=== PATIENT | female | born 1970 | race Two or more races ===

== ENCOUNTER 2021-05-16 19:58 | Inpatient (IN) | payer OTHER, SELFPAY ==
--- NOTE | ~2021-05-16 | XR_ITS ---
EXAMINATION: XR CHEST XR ABDOMEN XR SKULL CLINICAL INFORMATION: Evaluation prior to MRI. COMPARISON: None TECHNIQUE: AP and lateral views of the chest, 2 AP views of the abdomen in AP and lateral views of the skull. FINDINGS: CHEST: The cardiomediastinal and hilar contours are within normal limits. The lungs are clear without focal consolidation, pleural effusion or pneumothorax. ABDOMEN: Cholecystectomy clips project over the right upper quadrant. Nonobstructive bowel gas pattern. Moderate to large stool burden throughout the colon. No large free air. SKULL: Metallic, fixation brackets and screws are seen along the left occipital region around a site of likely prior craniotomy. XR/XR chest 2V IMPRESSION: 1. Cholecystectomy clips project over the right upper abdomen. 2. Two, metallic fixation brackets and screws are seen along the left occipital region around the site of prior surgery/craniotomy.
--- NOTE | ~2021-05-16 | XR_ITS ---
EXAMINATION: XR CHEST XR ABDOMEN XR SKULL CLINICAL INFORMATION: Evaluation prior to MRI. COMPARISON: None TECHNIQUE: AP and lateral views of the chest, 2 AP views of the abdomen in AP and lateral views of the skull. FINDINGS: CHEST: The cardiomediastinal and hilar contours are within normal limits. The lungs are clear without focal consolidation, pleural effusion or pneumothorax. ABDOMEN: Cholecystectomy clips project over the right upper quadrant. Nonobstructive bowel gas pattern. Moderate to large stool burden throughout the colon. No large free air. SKULL: Metallic, fixation brackets and screws are seen along the left occipital region around a site of likely prior craniotomy. XR/XR KUB IMPRESSION: 1. Cholecystectomy clips project over the right upper abdomen. 2. Two, metallic fixation brackets and screws are seen along the left occipital region around the site of prior surgery/craniotomy.
--- NOTE | ~2021-05-16 | CT_ITS ---
EXAMINATION: CT HEAD WITHOUT CONTRAST CLINICAL INFORMATION: Cognitive impairment COMPARISON: None. TECHNIQUE: Contiguous axial imaging was performed from the skull base to vertex without intravenous administration of contrast. Coronal and sagittal reformatted images are performed at the CT scanner. [This CT examination was performed using dose optimization techniques as appropriate, variously including the following: *Automated exposure control *Adjustment of mA and/or kV according to patient size (this includes techniques or standardized protocols for targeted exams where dose is matched to indication/reason for exam; i.e. extremities or head) *Use of iterative reconstruction technique] DLP: 949 mGy-cm. FINDINGS: There is no evidence of acute intracranial hemorrhage or acute territorial infarction. 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 Status post left craniotomy adjacent to the site. No abnormal mass-effect or midline shift is seen. Nichole to white matter differentiation is well preserved. No extra-axial fluid collections are identified. The ventricles are normal in size. There is no abnormal attenuation within the brain parenchyma. The mastoid air cells and visualized portions of the paranasal sinuses are well-aerated. CT/CT head/brain wo con IMPRESSION: No acute intracranial pathology.
--- NOTE | ~2021-05-16 | XR_ITS ---
EXAMINATION: XR CHEST XR ABDOMEN XR SKULL CLINICAL INFORMATION: Evaluation prior to MRI. COMPARISON: None TECHNIQUE: AP and lateral views of the chest, 2 AP views of the abdomen in AP and lateral views of the skull. FINDINGS: CHEST: The cardiomediastinal and hilar contours are within normal limits. The lungs are clear without focal consolidation, pleural effusion or pneumothorax. ABDOMEN: Cholecystectomy clips project over the right upper quadrant. Nonobstructive bowel gas pattern. Moderate to large stool burden throughout the colon. No large free air. SKULL: Metallic, fixation brackets and screws are seen along the left occipital region around a site of likely prior craniotomy. XR/XR skull <4V IMPRESSION: 1. Cholecystectomy clips project over the right upper abdomen. 2. Two, metallic fixation brackets and screws are seen along the left occipital region around the site of prior surgery/craniotomy.
--- NOTE | 2021-05-17 01:04 | PC.ADMIT ---
Beatrice Broderick arrives at 2015 from [facility]. Patient signed a CV. Patient is a 51 year old female, predominately Sudanese speaking. Patient was not compliant with admission assessment. Used a Sudanese speaking court interpreter. Patient refused to answer most questions. Patient continuously asked over and over when she could leave, was focused primarily on that. Was informed she could not leave and needed to wait until the morning to speak with MD. Patient was agitated and stated she would not take any medications at all. Patient is HIV + and Covid negative. According to [facility] report, patient living with son, not taking medications, and has been delusional and paranoid. Patient reported some Vague HI towards family members and had a plan to walk into traffic. Patient is diabetic and utilizing Lantus at .
[2021-05-17 05:33] VITALS: BMI 33.3
[2021-05-17 07:48] LABS: MANUAL DIFF FLAG NO
[2021-05-17 07:50] LABS: Basophils Percent Auto 0.7 % (0-2); Eosinophils Absolute Auto 0.2 X10*3/uL (0.0-0.4); Eosinophils Percent Auto 3.5 % (0-4); Hematocrit 36.2 % (37.0-47.0); Hemoglobin 12.3 g/dl (12.0-16.0); Imm Gran Abs Auto 0.02 X10*3/uL (0.00-0.03); Imm Gran Pct Auto 0.4 % (0.0-0.4); Lymphocytes Absolute Auto 1.1 X10*3/uL (1.2-4.9); Lymphocytes Percent Auto 24.4 % (20-40); Mean Corpuscular Hemoglobin 31.7 pg (27.0-33.0); Mean Corpuscular Volume 93.3 fL (80.0-98.0); Monocytes Absolute Auto 0.4 X10*3/uL (0.1-1.2); Monocytes Percent Auto 7.9 % (2-11); Neutrophils Absolute Auto 2.9 x10*3/uL (2.0-8.3); Neutrophils Percent Auto 63.1 % (45-73); Platelet Count 175 X10*3/uL (160-400); Red Blood Count 3.88 X10*6/uL (4.20-5.50); Red Cell Distribution Width 11.9 % (11.0-16.0); White Blood Count 4.5 X10*3/uL (4.8-10.8)
[2021-05-17 08:08] VITALS: BP 165/72; PULSE 81; RESP 17; TEMP 36.6; O2SAT 100
[2021-05-17 08:14] LABS: Alanine Aminotransferase 16 U/L (0-31); Albumin Level 4.2 g/dL (3.5-5.0); Alkaline Phosphatase 132 U/L (39-117); Aspartate Amino Transferase 13 U/L (5-31); Bilirubin Direct 0.2 mg/dL (0.0-0.5); Bilirubin Total 0.7 mg/dL (0.0-1.0); Total Protein 7.3 g/dL (6.5-8.0)
[2021-05-17 09:00] LABS: Glucose, Whole Blood 411 mg/dL (60-115)
[2021-05-17] MEDS: Insulin Lispro 100 UNIT/ML 3 ML VIAL 10 UNIT SUBCUT ×2 (09:05→20:25)
[2021-05-17 09:47] VITALS: BP 188/74; PULSE 90
[2021-05-17 12:45] LABS: Glucose, Whole Blood 338 mg/dL (60-115)
[2021-05-17 14:57] VITALS: BP 147/65; PULSE 85
[2021-05-17] MEDS: Celecoxib 200 MG CAPSULE PO (14:57)
[2021-05-17] MEDS: amLODIPine Besylate 5 MG TABLET PO (14:57)
[2021-05-17] MEDS: Sertraline HCL 100 MG TABLET PO (15:01)
[2021-05-17] MEDS: methIMAzole 10 MG TABLET PO (15:01)
[2021-05-17] MEDS: Dolutegravir Sodium 50 MG TABLET PO (15:01)
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
[2021-05-17] MEDS: Acetaminophen 325 MG TABLET 650 MG PO (15:04)
[2021-05-17] MEDS: HaloperidoL 5 MG TABLET PO ×2 (15:47→20:21)
[2021-05-17 20:09] LABS: Glucose, Whole Blood > 600 mg/dL (60-115)
[2021-05-17] MEDS: Aspirin Enteric Coated 81 MG TABLET.DR PO (20:21)
[2021-05-17] MEDS: Omeprazole 20 MG CAPSULE.DR PO (20:21)
[2021-05-17] MEDS: Divalproex Sodium ER 500 MG TAB.ER.24H 1000 MG PO (20:21)
[2021-05-17] MEDS: Insulin Glargine,Hum.rec.anlog 100 UNIT/ML 10 ML VIAL 60 UNIT SUBCUT (20:24)
[2021-05-17 20:25] VITALS: BP 139/63; PULSE 75; RESP 18; TEMP 36.5; O2SAT 98
[2021-05-17 21:23] LABS: Glucose Random 712 mg/dL (60-115)
[2021-05-17 22:04] LABS: Glucose, Whole Blood > 600 mg/dL (60-115)
[2021-05-17 22:28] LABS: Anion Gap 13 (12-20); Blood Urea Nitrogen 25 mg/dL (9-16); Carbon Dioxide 23 mmol/L (22-29); Chloride 95 mmol/L (96-108); Creatinine Clr Calc Pharmacy 39.7; Estimated Glomerular Filt Rate 29; Glucose Random 664 mg/dL (60-115); Potassium 4.4 mmol/L (3.3-5.1); Sodium 127 mmol/L (135-145)
[2021-05-17] MEDS: Insulin Lispro 100 UNIT/ML 3 ML VIAL 12 UNIT SUBCUT (23:18)
--- NOTE | 2021-05-17 23:47 | P.EN_ITS ---
Event Note Date of Service: 06/01/21 Event Note: Hyperglycemia: Patient is uses glucose noted to be 750; patient was given 10 units of Humalog; patient already received her nighttime dose of Lantus 60 units Patient's blood chemistry showed sodium of 127-pseudo hyponatremia; Serum bicarb 23. No evidence of DKA. Patient encouraged to drink water. Patient given and the 10 units of Humalog. Follow-up glucose improved to 455 ; will continue to monitor. HECTOR: Patient's creatinine noted to be 1.8. Patient's baseline creatinine is 1.1 as noted from the labs at [facility]. pt drinking water; On repeat BMP creatinine improved from 1.8 to 1.4 Pt denies any complaints; Exam benign. Off note: Spoke to the nursing insurance licensing supervisor for possibility of transfer to the medical floors for IV fluids. Reported that the bed situation is very tight. Probably no bed available tonight. Spoke Psychiatry UPSETTER, RN and pt-> explained plan of care and Encouraged Po fluid intake. Update: Early AM: pt developed Hypoglycemia; Pt POC ranged form 90 to 110; Received [place] Juice. Pt is Asymptomatic. Spoke RN to closely montior POC glucose for next few hrs. Held Lispro BID dose.
[2021-05-18 00:06] LABS: Glucose, Whole Blood 455 mg/dL (60-115)
--- NOTE | 2021-05-18 00:17 | PM.EVENT ---
Event Note Date of Service: 05/17/21 Event Note: At 21:23 RN notified pt had critical random blood glucose reading of 712. Pt was then given her scheduled humalog 10 units and lantus 60 units. I communicated result to hospitalist and he recommended ordering BMP, monitoring blood glucose every hour, and encouraging PO fluids 1-2 liters. At 22:30, pt's random blood glucose was 664, able to drink 4 oz of water but refused to drink more. BMP wnl except Na 127, chloride 95, BUN 25, and Cr 1.82. No baseline labs available to review. I discussed results with hospitalist who recommended 12 units of insulin lispro. At 00:17 pt had random blood glucose of 455. Hospitalist asked for formal consult to be placed and recommended to continue to monitor random blood glucose and encourage fluids, will re-assess BMP at 02:30.
--- NOTE | 2021-05-18 00:54 | PC.NURSE ---
Dr. Allen in to see Beatrice, did exam, encouraged patient to drink more fluids. Patient falling back to sleep during exam. Patient drank about 8 ounces of fluid.
[2021-05-18 01:13] LABS: Glucose, Whole Blood 449 mg/dL (60-115)
[2021-05-18] MEDS: Insulin Lispro 100 UNIT/ML 3 ML VIAL 10 UNIT SUBCUT (01:37)
[2021-05-18 02:19] LABS: Glucose, Whole Blood 298 mg/dL (60-115)
[2021-05-18 03:08] LABS: Anion Gap 15 (12-20); Blood Urea Nitrogen 23 mg/dL (9-16); Calcium 9.9 mg/dL (8.4-10.2); Carbon Dioxide 25 mmol/L (22-29); Chloride 101 mmol/L (96-108); Creatinine Clr Calc Pharmacy 48.9; Estimated Glomerular Filt Rate 37; Glucose Random 230 mg/dL (60-115); Potassium 4.2 mmol/L (3.3-5.1); Sodium 137 mmol/L (135-145)
[2021-05-18 03:22] LABS: Glucose, Whole Blood 129 mg/dL (60-115)
--- NOTE | 2021-05-18 03:33 | PC.NURSE ---
Patient blood sugar was 129, was given 4 ounces of cranberry juice and 2 saltine crackers with peanut butter.
[2021-05-18 03:54] LABS: Glucose, Whole Blood 93 mg/dL (60-115)
--- NOTE | 2021-05-18 04:02 | PC.NURSE ---
Patient given 4 ounces of cranberry juice.
[2021-05-18 04:23] LABS: Glucose, Whole Blood 138 mg/dL (60-115)
[2021-05-18 05:10] LABS: Glucose, Whole Blood 131 mg/dL (60-115)
--- NOTE | 2021-05-18 05:11 | PC.NURSE ---
Patient's blood glucose appears to be stabilizing. At 0415 POC was 138, at 0505 POC was 131.
[2021-05-18 06:21] LABS: Glucose, Whole Blood 110 mg/dL (60-115)
[2021-05-18 07:53] LABS: Glucose, Whole Blood 83 mg/dL (60-115)
[2021-05-18 08:25] LABS: Glucose, Whole Blood > 600 mg/dL (60-115)
--- NOTE | 2021-05-18 08:34 | PC.NURSE ---
POC glucose 83 at 0745am. 4 oz oj given due to significant drop in blood suagr. Patient is assymptomatic. Dr Maddox informed
[2021-05-18 08:53] LABS: Glucose, Whole Blood 115 mg/dL (60-115)
[2021-05-18] MEDS: methIMAzole 10 MG TABLET PO (10:03)
[2021-05-18] MEDS: Dolutegravir Sodium 50 MG TABLET PO (10:03)
[2021-05-18 10:04] VITALS: BP 130/88; PULSE 80
[2021-05-18] MEDS: Celecoxib 200 MG CAPSULE PO (10:04)
[2021-05-18] MEDS: amLODIPine Besylate 5 MG TABLET PO (10:04)
[2021-05-18] MEDS: HaloperidoL 5 MG TABLET PO ×2 (10:04→21:07)
[2021-05-18] MEDS: Nicotine 21 MG PATCH.TD24 TRANSDERMA (10:05)
[2021-05-18 10:30] VITALS: BP 130/88; PULSE 80; RESP 16; TEMP 36.4; O2SAT 96
[2021-05-18] MEDS: Insulin Lispro 100 UNIT/ML 3 ML VIAL SUBCUT ×3 (12:52→21:06)
[2021-05-18 12:53] LABS: Glucose, Whole Blood 362 mg/dL (60-115)
--- NOTE | 2021-05-18 15:37 | P.PNPSI_ITS ---
Subjective Subjective Date of Service: 05/18/21 Reason For Visit: Brief Psychotic d/o Interim History: pt seen with asl interpreter. reports her mood is good, yet then spins off onto tangents about all of the terrible things her relations are up to. the affect is very much muted from yesterday, however. acknowledges she is more calm than yesterday. no complaints or requests. per staff, labile and disorganized yesterday. blood sugar labile as well. disrupted sleep overnight due to medical interventions re blood sugar. Mental Status Exam Mental Status Exam Narrative: seen with asl interpreter. appropriately dressed and groomed in street clothes, cooperative with interview. no PMA/PMR. speech incr in rate, amount. nml loudness. decr latency, nml prosody. thoughts more organized, but tangential. delusional and paranoid. affect constricted, consistent with context, normo-intense, minimally labile. mood good, no SI/HI/AVH expressed. Diagnostics Vital Signs (24Hr): Vital Signs - 24 hr 05/17/21 20:25 05/18/21 10:04 05/18/21 10:30 Temperature 97.7 F 97.5 F Pulse Rate 75 80 80 Respiratory Rate 18 16 Blood Pressure 139/63 130/88 130/88 Pulse Oximetry 98 96 BMI result Body Mass Index 33.3 Labs Results: 05/17/21 07:08 05/18/21 02:31 Labs: Laboratory Results - last 48 hr 05/17/21 05/17/21 05/17/21 07:08 07:08 08:54 WBC 4.5 L RBC 3.88 L Hgb 12.3 Hct 36.2 L MCV 93.3 MCH 31.7 MCHC 34.0 RDW 11.9 Plt Count 175 MPV 11.0 Immature Gran % (Auto) 0.4 Neut % (Auto) 63.1 Lymph % (Auto) 24.4 [place] % (Auto) 7.9 Eos % (Auto) 3.5 Baso % (Auto) 0.7 Lymph # (Auto) 1.1 L [place] # (Auto) 0.4 Eos # (Auto) 0.2 Baso # (Auto) 0.0 Abs Immat Gran (auto) 0.02 Absolute Neuts (auto) 2.9 Absolute Nucleated RBC 0.000 Nucleated RBC % (auto) 0.0 Sodium Potassium Chloride Carbon Dioxide Anion Gap BUN Creatinine Estim Creat Clear Calc Estimated GFR POC Glucose 411 H* Random Glucose Calcium Total Bilirubin 0.7 Direct Bilirubin 0.2 AST 13 ALT 16 Alkaline Phosphatase 132 H Total Protein 7.3 Albumin 4.2 05/17/21 05/17/21 05/17/21 12:41 19:57 19:58 WBC RBC Hgb Hct MCV MCH MCHC RDW Plt Count MPV Immature Gran % (Auto) Neut % (Auto) Lymph % (Auto) [place] % (Auto) Eos % (Auto) Baso % (Auto) Lymph # (Auto) [place] # (Auto) Eos # (Auto) Baso # (Auto) Abs Immat Gran (auto) Absolute Neuts (auto) Absolute Nucleated RBC Nucleated RBC % (auto) Sodium Potassium Chloride Carbon Dioxide Anion Gap BUN Creatinine Estim Creat Clear Calc Estimated GFR POC Glucose 338 H > 600 H* > 600 H* Random Glucose Calcium Total Bilirubin Direct Bilirubin AST ALT Alkaline Phosphatase Total Protein Albumin 05/17/21 05/17/21 05/17/21 20:34 21:47 21:48 WBC RBC Hgb Hct MCV MCH MCHC RDW Plt Count MPV Immature Gran % (Auto) Neut % (Auto) Lymph % (Auto) [place] % (Auto) Eos % (Auto) Baso % (Auto) Lymph # (Auto) [place] # (Auto) Eos # (Auto) Baso # (Auto) Abs Immat Gran (auto) Absolute Neuts (auto) Absolute Nucleated RBC Nucleated RBC % (auto) Sodium 127 L Potassium 4.4 Chloride 95 L Carbon Dioxide 23 Anion Gap 13 BUN 25 H Creatinine 1.82 H Estim Creat Clear Calc 39.7 Estimated GFR 29 POC Glucose > 600 H* Random Glucose 712 H* 664 H* Calcium 9.0 Total Bilirubin Direct Bilirubin AST ALT Alkaline Phosphatase Total Protein Albumin 05/18/21 05/18/21 05/18/21 00:01 01:07 02:14 WBC RBC Hgb Hct MCV MCH MCHC RDW Plt Count MPV Immature Gran % (Auto) Neut % (Auto) Lymph % (Auto) [place] % (Auto) Eos % (Auto) Baso % (Auto) Lymph # (Auto) [place] # (Auto) Eos # (Auto) Baso # (Auto) Abs Immat Gran (auto) Absolute Neuts (auto) Absolute Nucleated RBC Nucleated RBC % (auto) Sodium Potassium Chloride Carbon Dioxide Anion Gap BUN Creatinine Estim Creat Clear Calc Estimated GFR POC Glucose 455 H* 449 H* 298 H Random Glucose Calcium Total Bilirubin Direct Bilirubin AST ALT Alkaline Phosphatase Total Protein Albumin 05/18/21 05/18/21 05/18/21 02:31 03:17 03:49 WBC RBC Hgb Hct MCV MCH MCHC RDW Plt Count MPV Immature Gran % (Auto) Neut % (Auto) Lymph % (Auto) [place] % (Auto) Eos % (Auto) Baso % (Auto) Lymph # (Auto) [place] # (Auto) Eos # (Auto) Baso # (Auto) Abs Immat Gran (auto) Absolute Neuts (auto) Absolute Nucleated RBC Nucleated RBC % (auto) Sodium 137 Potassium 4.2 Chloride 101 Carbon Dioxide 25 Anion Gap 15 BUN 23 H Creatinine 1.48 H Estim Creat Clear Calc 48.9 Estimated GFR 37 POC Glucose 129 H 93 Random Glucose 230 H D Calcium 9.9 D Total Bilirubin Direct Bilirubin AST ALT Alkaline Phosphatase Total Protein Albumin 05/18/21 05/18/21 05/18/21 04:15 05:04 06:15 WBC RBC Hgb Hct MCV MCH MCHC RDW Plt Count MPV Immature Gran % (Auto) Neut % (Auto) Lymph % (Auto) [place] % (Auto) Eos % (Auto) Baso % (Auto) Lymph # (Auto) [place] # (Auto) Eos # (Auto) Baso # (Auto) Abs Immat Gran (auto) Absolute Neuts (auto) Absolute Nucleated RBC Nucleated RBC % (auto) Sodium Potassium Chloride Carbon Dioxide Anion Gap BUN Creatinine Estim Creat Clear Calc Estimated GFR POC Glucose 138 H 131 H 110 Random Glucose Calcium Total Bilirubin Direct Bilirubin AST ALT Alkaline Phosphatase Total Protein Albumin 05/18/21 05/18/21 05/18/21 07:45 08:49 12:44 WBC RBC Hgb Hct MCV MCH MCHC RDW Plt Count MPV Immature Gran % (Auto) Neut % (Auto) Lymph % (Auto) [place] % (Auto) Eos % (Auto) Baso % (Auto) Lymph # (Auto) [place] # (Auto) Eos # (Auto) Baso # (Auto) Abs Immat Gran (auto) Absolute Neuts (auto) Absolute Nucleated RBC Nucleated RBC % (auto) Sodium Potassium Chloride Carbon Dioxide Anion Gap BUN Creatinine Estim Creat Clear Calc Estimated GFR POC Glucose 83 115 362 H* Random Glucose Calcium Total Bilirubin Direct Bilirubin AST ALT Alkaline Phosphatase Total Protein Albumin Medications Medications Current Medications Acetaminophen (Acetaminophen 325 Mg Tablet) 650 mg PO Q8H PRN PRN Reason: Pain, Mild Last Admin: 05/17/21 15:04 Dose: 650 mg Documented by: Al Hydroxide/Mg Hydroxide (Magnesium Hydrox/Alum Hydrox 30 Ml Oral.Susp) 30 ml PO Q6H PRN PRN Reason: Heartburn/Nausea Amlodipine Besylate (Amlodipine Besylate 5 Mg Tablet) 5 mg PO DAILY [facility]; Protocol Last Admin: 05/18/21 10:04 Dose: 5 mg Documented by: Aspirin (Aspirin Enteric Coated 81 Mg Tablet.) 81 mg PO BEDTIME [facility] Last Admin: 05/17/21 20:21 Dose: 81 mg Documented by: Celecoxib (Celecoxib 200 Mg Capsule) 200 mg PO DAILY [facility] Last Admin: 05/18/21 10:04 Dose: 200 mg Documented by: Dextrose (Dextrose 50 % 25 Gm/50 Ml Vial) 25 gm IVPUSH Q15M PRN; Protocol PRN Reason: per Hypoglycemia Standing Ord. Divalproex Sodium (Divalproex Sodium Er 500 Mg Tab.Er.24h) 1,000 mg PO BEDTIME [facility] Last Admin: 05/17/21 20:21 Dose: 1,000 mg Documented by: Dolutegravir Sodium (Dolutegravir Sodium 50 Mg Tablet) 50 mg PO DAILY [facility] Last Admin: 05/18/21 10:03 Dose: 50 mg Documented by: Glucose (Glucose Gel 15 Gm Gel..Gram.) 15 gm PO Q15M PRN; Protocol PRN Reason: per Hypoglycemia Standing Ord. Haloperidol (Haloperidol 5 Mg Tablet) 5 mg PO BID [facility] Last Admin: 05/18/21 10:04 Dose: 5 mg Documented by: Hydroxyzine HCl (Hydroxyzine Hcl 25 Mg Tablet) 25 mg PO BEDTIME PRN PRN Reason: Anxiety Insulin Glargine (Insulin Glargine,Hum.Rec.Anlog 100 Unit/Ml 10 Ml Vial) 60 unit SUBCUT BEDTIME [facility] Last Admin: 05/17/21 20:24 Dose: 60 unit Documented by: Insulin Human Lispro (Insulin Lispro 100 Unit/Ml 3 Ml Vial) 10 unit SUBCUT BID [facility] Last Admin: 05/17/21 20:25 Dose: 10 unit Documented by: Insulin Human Lispro (Insulin Lispro 100 Unit/Ml 3 Ml Vial) 0 unit SUBCUT QIDACHS [facility]; Protocol Last Admin: 05/18/21 12:52 Dose: 10 unit Documented by: Magnesium Hydroxide (Milk Of Magnesia 30 Ml Oral.Susp) 30 ml PO DAILY PRN PRN Reason: Constipation Methimazole (Methimazole 10 Mg Tablet) 10 mg PO DAILY [facility] Last Admin: 05/18/21 10:03 Dose: 10 mg Documented by: Nicotine (Nicotine 21 Mg Patch.Td24) 21 mg TRANSDERMA DAILY [facility] Last Admin: 05/18/21 10:05 Dose: 21 mg Documented by: Nicotine Polacrilex (Nicotine Polacrilex 2 Mg Gum) 2 mg BUCCAL Q2H PRN PRN Reason: craving Omeprazole (Omeprazole 20 Mg Capsule.Dr) 20 mg PO BEDTIME [facility] Last Admin: 05/17/21 20:21 Dose: 20 mg Documented by: Quetiapine Fumarate (Quetiapine Fumarate 200 Mg Tablet) 200 mg PO BEDTIME PRN PRN Reason: insomnia Tramadol HCl (Tramadol Hcl 50 Mg Tablet) 50 mg PO BID PRN PRN Reason: Pain, Mild (Pain Scale 1-3) Allergies Allergies Allergy/AdvReac Type Severity Reaction Status Date / Time morphine Allergy Itching Verified 05/16/21 21:20 Assessment & Plan Assessment & Plan (1) Bipolar I disorder with samson: Status: Acute Code(s): F31.10 - Bipolar disorder, current episode manic without psychotic features, unspecified (2) Hypertension: Status: Acute Code(s): I10 - Essential (primary) hypertension (3) Diabetes: Status: Acute Code(s): E11.9 - Type 2 diabetes mellitus without complications Assessment and Plan: 1) samson - VPA 1000 mg at HS, haldol 5 BID. much improved in less than 24H on this regimen. 2) DM - per medicine. SSI in place. 3) HTN - norvasc 5. 4) dispo - pending inpt stabilization. I spent minutes with the patient and/or on the patient floor today, greater than?50% of which was spent counseling/coordinating care. Reason for contiued inpatient stay Substantial Risk for: harm to others and rapid decompensation
[2021-05-18 17:26] LABS: Glucose, Whole Blood 195 mg/dL (60-115)
[2021-05-18 20:40] LABS: Glucose, Whole Blood 345 mg/dL (60-115)
[2021-05-18] MEDS: Insulin Glargine,Hum.rec.anlog 100 UNIT/ML 10 ML VIAL 60 UNIT SUBCUT (21:05)
[2021-05-18] MEDS: Divalproex Sodium ER 500 MG TAB.ER.24H 1000 MG PO (21:07)
[2021-05-18] MEDS: Aspirin Enteric Coated 81 MG TABLET.DR PO (21:07)
[2021-05-18] MEDS: Omeprazole 20 MG CAPSULE.DR PO (21:07)
[2021-05-18 21:12] VITALS: BP 161/68; PULSE 83; TEMP 36.8; O2SAT 100
--- NOTE | 2021-05-19 08:21 | HO.PSYCHPN ---
Subjective Subjective Date of Service: 05/19/21 Reason For Visit: Brief Psychotic d/o Subjective Notes: Conditional Voluntary Interim History: Patient was seen and discussed in rounds today. She is doing better and has been pleasant and social, showing signs of improvement. She is less paranoid and depressed. No SI/HI. No hallucinations reported. She has been compliant with her medications. She continues to get monitors for her diabetes which appears to be somewhat brittle. Eating and sleeping adequately. No changes were made today Medication Compliance: Yes Side effects from medications: No Attending Groups: Yes Review of Systems Review of Systems Yes all other systems are reviewed and are negative Mental Status Exam Mental Status Exam Narrative: Patient was seen in rounds today. She has alert, pleasant and interactive within her means. She is able to communicate minimally because of language barrier. No acute signs observed. No SI/HI reported. Appears to be intact cognitively. Diagnostics Vital Signs (24Hr): Vital Signs - 24 hr 05/18/21 10:04 05/18/21 10:30 05/18/21 21:12 Temperature 97.5 F 98.3 F Pulse Rate 80 80 83 Respiratory Rate 16 Blood Pressure 130/88 130/88 161/68 H Pulse Oximetry 96 100 BMI result Body Mass Index 33.3 Labs Results: 05/17/21 07:08 05/18/21 02:31 Labs: Laboratory Results - last 48 hr 05/17/21 05/17/21 05/17/21 08:54 12:41 19:57 Sodium Potassium Chloride Carbon Dioxide Anion Gap BUN Creatinine Estim Creat Clear Calc Estimated GFR POC Glucose 411 H* 338 H > 600 H* Random Glucose Calcium 05/17/21 05/17/21 05/17/21 19:58 20:34 21:47 Sodium Potassium Chloride Carbon Dioxide Anion Gap BUN Creatinine Estim Creat Clear Calc Estimated GFR POC Glucose > 600 H* > 600 H* Random Glucose 712 H* Calcium 05/17/21 05/18/21 05/18/21 21:48 00:01 01:07 Sodium 127 L Potassium 4.4 Chloride 95 L Carbon Dioxide 23 Anion Gap 13 BUN 25 H Creatinine 1.82 H Estim Creat Clear Calc 39.7 Estimated GFR 29 POC Glucose 455 H* 449 H* Random Glucose 664 H* Calcium 9.0 05/18/21 05/18/21 05/18/21 02:14 02:31 03:17 Sodium 137 Potassium 4.2 Chloride 101 Carbon Dioxide 25 Anion Gap 15 BUN 23 H Creatinine 1.48 H Estim Creat Clear Calc 48.9 Estimated GFR 37 POC Glucose 298 H 129 H Random Glucose 230 H D Calcium 9.9 D 05/18/21 05/18/21 05/18/21 03:49 04:15 05:04 Sodium Potassium Chloride Carbon Dioxide Anion Gap BUN Creatinine Estim Creat Clear Calc Estimated GFR POC Glucose 93 138 H 131 H Random Glucose Calcium 05/18/21 05/18/21 05/18/21 06:15 07:45 08:49 Sodium Potassium Chloride Carbon Dioxide Anion Gap BUN Creatinine Estim Creat Clear Calc Estimated GFR POC Glucose 110 83 115 Random Glucose Calcium 05/18/21 05/18/21 05/18/21 12:44 17:21 20:36 Sodium Potassium Chloride Carbon Dioxide Anion Gap BUN Creatinine Estim Creat Clear Calc Estimated GFR POC Glucose 362 H* 195 H 345 H Random Glucose Calcium Medications Medications Current Medications Acetaminophen (Acetaminophen 325 Mg Tablet) 650 mg PO Q8H PRN PRN Reason: Pain, Mild Last Admin: 05/17/21 15:04 Dose: 650 mg Documented by: Al Hydroxide/Mg Hydroxide (Magnesium Hydrox/Alum Hydrox 30 Ml Oral.Susp) 30 ml PO Q6H PRN PRN Reason: Heartburn/Nausea Amlodipine Besylate (Amlodipine Besylate 5 Mg Tablet) 5 mg PO DAILY [facility]; Protocol Last Admin: 05/18/21 10:04 Dose: 5 mg Documented by: Aspirin (Aspirin Enteric Coated 81 Mg Tablet.) 81 mg PO BEDTIME [facility] Last Admin: 05/18/21 21:07 Dose: 81 mg Documented by: Celecoxib (Celecoxib 200 Mg Capsule) 200 mg PO DAILY [facility] Last Admin: 05/18/21 10:04 Dose: 200 mg Documented by: Dextrose (Dextrose 50 % 25 Gm/50 Ml Vial) 25 gm IVPUSH Q15M PRN; Protocol PRN Reason: per Hypoglycemia Standing Ord. Divalproex Sodium (Divalproex Sodium Er 500 Mg Tab.Er.24h) 1,000 mg PO BEDTIME [facility] Last Admin: 05/18/21 21:07 Dose: 1,000 mg Documented by: Dolutegravir Sodium (Dolutegravir Sodium 50 Mg Tablet) 50 mg PO DAILY [facility] Last Admin: 05/18/21 10:03 Dose: 50 mg Documented by: Glucose (Glucose Gel 15 Gm Gel..Gram.) 15 gm PO Q15M PRN; Protocol PRN Reason: per Hypoglycemia Standing Ord. Haloperidol (Haloperidol 5 Mg Tablet) 5 mg PO BID [facility] Last Admin: 05/18/21 21:07 Dose: 5 mg Documented by: Hydroxyzine HCl (Hydroxyzine Hcl 25 Mg Tablet) 25 mg PO BEDTIME PRN PRN Reason: Anxiety Insulin Glargine (Insulin Glargine,Hum.Rec.Anlog 100 Unit/Ml 10 Ml Vial) 60 unit SUBCUT BEDTIME [facility] Last Admin: 05/18/21 21:05 Dose: 60 unit Documented by: Insulin Human Lispro (Insulin Lispro 100 Unit/Ml 3 Ml Vial) 10 unit SUBCUT BID [facility] Last Admin: 05/17/21 20:25 Dose: 10 unit Documented by: Insulin Human Lispro (Insulin Lispro 100 Unit/Ml 3 Ml Vial) 0 unit SUBCUT QIDACHS [facility]; Protocol Last Admin: 05/18/21 21:06 Dose: 8 unit Documented by: Magnesium Hydroxide (Milk Of Magnesia 30 Ml Oral.Susp) 30 ml PO DAILY PRN PRN Reason: Constipation Methimazole (Methimazole 10 Mg Tablet) 10 mg PO DAILY [facility] Last Admin: 05/18/21 10:03 Dose: 10 mg Documented by: Nicotine (Nicotine 21 Mg Patch.Td24) 21 mg TRANSDERMA DAILY [facility] Last Admin: 05/18/21 10:05 Dose: 21 mg Documented by: Nicotine Polacrilex (Nicotine Polacrilex 2 Mg Gum) 2 mg BUCCAL Q2H PRN PRN Reason: craving Omeprazole (Omeprazole 20 Mg Capsule.Dr) 20 mg PO BEDTIME [facility] Last Admin: 05/18/21 21:07 Dose: 20 mg Documented by: Quetiapine Fumarate (Quetiapine Fumarate 200 Mg Tablet) 200 mg PO BEDTIME PRN PRN Reason: insomnia Tramadol HCl (Tramadol Hcl 50 Mg Tablet) 50 mg PO BID PRN PRN Reason: Pain, Mild (Pain Scale 1-3) Allergies Allergies Allergy/AdvReac Type Severity Reaction Status Date / Time morphine Allergy Itching Verified 05/16/21 21:20 Assessment & Plan Assessment & Plan (1) Bipolar I disorder with samson: Status: Acute Code(s): F31.10 - Bipolar disorder, current episode manic without psychotic features, unspecified (2) Hypertension: Status: Acute Code(s): I10 - Essential (primary) hypertension (3) Diabetes: Status: Acute Code(s): E11.9 - Type 2 diabetes mellitus without complications Assessment and Plan: 1) samson - VPA 1000 mg at HS, haldol 5 BID. much improved in less than 24H on this regimen. 2) DM - per medicine. SSI in place. 3) HTN - norvasc 5. 4) dispo - pending inpt stabilization. 05/19: Continue current regimen with no changes implemented today I spent minutes with the patient and/or on the patient floor today, greater than?50% of which was spent counseling/coordinating care. Reason for contiued inpatient stay Substantial Risk for: other
[2021-05-19 09:00] VITALS: BP 133/61; PULSE 64; RESP 18; TEMP 36.4; O2SAT 100
[2021-05-19 09:00] LABS: Glucose, Whole Blood 151 mg/dL (60-115)
[2021-05-19] MEDS: Insulin Lispro 100 UNIT/ML 3 ML VIAL SUBCUT ×4 (09:03→22:05)
[2021-05-19 09:05] VITALS: BP 133/61; PULSE 64
[2021-05-19] MEDS: HaloperidoL 5 MG TABLET PO ×2 (09:05→22:07)
[2021-05-19] MEDS: amLODIPine Besylate 5 MG TABLET PO (09:05)
[2021-05-19] MEDS: methIMAzole 10 MG TABLET PO (09:05)
[2021-05-19] MEDS: Celecoxib 200 MG CAPSULE PO (09:05)
[2021-05-19] MEDS: Dolutegravir Sodium 50 MG TABLET PO (09:05)
[2021-05-19 12:49] LABS: Glucose, Whole Blood 280 mg/dL (60-115)
[2021-05-19 17:54] LABS: Glucose, Whole Blood 209 mg/dL (60-115)
[2021-05-19 18:00] VITALS: BP 177/75; PULSE 86; TEMP 36.9; O2SAT 99
[2021-05-19 20:45] LABS: Glucose, Whole Blood 327 mg/dL (60-115)
[2021-05-19] MEDS: Insulin Glargine,Hum.rec.anlog 100 UNIT/ML 10 ML VIAL 60 UNIT SUBCUT (22:06)
[2021-05-19] MEDS: Aspirin Enteric Coated 81 MG TABLET.DR PO (22:07)
[2021-05-19] MEDS: Divalproex Sodium ER 500 MG TAB.ER.24H 1000 MG PO (22:07)
[2021-05-19] MEDS: Omeprazole 20 MG CAPSULE.DR PO (22:07)
[2021-05-20 08:00] VITALS: BP 143/68; PULSE 91; TEMP 36.3; O2SAT 99
[2021-05-20 08:26] LABS: Glucose, Whole Blood 51 mg/dL (60-115)
--- NOTE | 2021-05-20 08:53 | HO.PSYCHPN ---
Subjective Subjective Date of Service: 05/20/21 Reason For Visit: Brief Psychotic d/o Subjective Notes: Conditional Voluntary Interim History: Patient was seen in rounds today. She continues to be in her room a lot. Attending some groups. She is med compliant. Appears to be less anxious and depressed. She is upset that she is here for Jared. She is med compliant. No side effects or complaints. No SI. No changes were made today Review of Systems Review of Systems Yes all other systems are reviewed and are negative Diagnostics Vital Signs (24Hr): Vital Signs - 24 hr 05/19/21 09:00 05/19/21 09:05 05/19/21 18:00 Temperature 97.6 F 98.5 F Pulse Rate 64 64 86 Respiratory Rate 18 Blood Pressure 133/61 133/61 177/75 H Pulse Oximetry 100 99 BMI result Body Mass Index 33.3 Labs Results: 05/17/21 07:08 05/18/21 02:31 Labs: Laboratory Results - last 48 hr 05/18/21 05/18/21 05/18/21 08:49 12:44 17:21 POC Glucose 115 362 H* 195 H 05/18/21 05/19/21 05/19/21 20:36 08:56 12:43 POC Glucose 345 H 151 H 280 H 05/19/21 05/19/21 05/20/21 17:50 20:33 08:15 POC Glucose 209 H 327 H 51 L* Medications Medications Current Medications Acetaminophen (Acetaminophen 325 Mg Tablet) 650 mg PO Q8H PRN PRN Reason: Pain, Mild Last Admin: 05/17/21 15:04 Dose: 650 mg Documented by: Al Hydroxide/Mg Hydroxide (Magnesium Hydrox/Alum Hydrox 30 Ml Oral.Susp) 30 ml PO Q6H PRN PRN Reason: Heartburn/Nausea Amlodipine Besylate (Amlodipine Besylate 5 Mg Tablet) 5 mg PO DAILY [facility]; Protocol Last Admin: 05/19/21 09:05 Dose: 5 mg Documented by: Aspirin (Aspirin Enteric Coated 81 Mg Tablet.) 81 mg PO BEDTIME [facility] Last Admin: 05/19/21 22:07 Dose: 81 mg Documented by: Celecoxib (Celecoxib 200 Mg Capsule) 200 mg PO DAILY [facility] Last Admin: 05/19/21 09:05 Dose: 200 mg Documented by: Dextrose (Dextrose 50 % 25 Gm/50 Ml Vial) 25 gm IVPUSH Q15M PRN; Protocol PRN Reason: per Hypoglycemia Standing Ord. Divalproex Sodium (Divalproex Sodium Er 500 Mg Tab.Er.24h) 1,000 mg PO BEDTIME [facility] Last Admin: 05/19/21 22:07 Dose: 1,000 mg Documented by: Dolutegravir Sodium (Dolutegravir Sodium 50 Mg Tablet) 50 mg PO DAILY [facility] Last Admin: 05/19/21 09:05 Dose: 50 mg Documented by: Glucose (Glucose Gel 15 Gm Gel..Gram.) 15 gm PO Q15M PRN; Protocol PRN Reason: per Hypoglycemia Standing Ord. Haloperidol (Haloperidol 5 Mg Tablet) 5 mg PO BID [facility] Last Admin: 05/19/21 22:07 Dose: 5 mg Documented by: Hydroxyzine HCl (Hydroxyzine Hcl 25 Mg Tablet) 25 mg PO BEDTIME PRN PRN Reason: Anxiety Insulin Glargine (Insulin Glargine,Hum.Rec.Anlog 100 Unit/Ml 10 Ml Vial) 60 unit SUBCUT BEDTIME [facility] Last Admin: 05/19/21 22:06 Dose: 60 unit Documented by: Insulin Human Lispro (Insulin Lispro 100 Unit/Ml 3 Ml Vial) 10 unit SUBCUT BID [facility] Last Admin: 05/17/21 20:25 Dose: 10 unit Documented by: Insulin Human Lispro (Insulin Lispro 100 Unit/Ml 3 Ml Vial) 0 unit SUBCUT QIDACHS [facility]; Protocol Last Admin: 05/19/21 22:05 Dose: 8 unit Documented by: Magnesium Hydroxide (Milk Of Magnesia 30 Ml Oral.Susp) 30 ml PO DAILY PRN PRN Reason: Constipation Methimazole (Methimazole 10 Mg Tablet) 10 mg PO DAILY [facility] Last Admin: 05/19/21 09:05 Dose: 10 mg Documented by: Nicotine (Nicotine 21 Mg Patch.Td24) 21 mg TRANSDERMA DAILY [facility] Last Admin: 05/19/21 13:14 Dose: Not Given Documented by: Nicotine Polacrilex (Nicotine Polacrilex 2 Mg Gum) 2 mg BUCCAL Q2H PRN PRN Reason: craving Omeprazole (Omeprazole 20 Mg Capsule.Dr) 20 mg PO BEDTIME [facility] Last Admin: 05/19/21 22:07 Dose: 20 mg Documented by: Quetiapine Fumarate (Quetiapine Fumarate 200 Mg Tablet) 200 mg PO BEDTIME PRN PRN Reason: insomnia Tramadol HCl (Tramadol Hcl 50 Mg Tablet) 50 mg PO BID PRN PRN Reason: Pain, Mild (Pain Scale 1-3) Allergies Allergies Allergy/AdvReac Type Severity Reaction Status Date / Time morphine Allergy Itching Verified 05/16/21 21:20 Assessment & Plan Assessment & Plan (1) Bipolar I disorder with samson: Status: Acute Code(s): F31.10 - Bipolar disorder, current episode manic without psychotic features, unspecified (2) Hypertension: Status: Acute Code(s): I10 - Essential (primary) hypertension (3) Diabetes: Status: Acute Code(s): E11.9 - Type 2 diabetes mellitus without complications Assessment and Plan: 1) samson - VPA 1000 mg at HS, haldol 5 BID. much improved in less than 24H on this regimen. 2) DM - per medicine. SSI in place. 3) HTN - norvasc 5. 4) dispo - pending inpt stabilization. 05/19: Continue current regimen with no changes implemented today I spent minutes with the patient and/or on the patient floor today, greater than?50% of which was spent counseling/coordinating care. Reason for contiued inpatient stay Substantial Risk for: other
[2021-05-20 08:56] VITALS: BP 143/68; PULSE 91
[2021-05-20] MEDS: amLODIPine Besylate 5 MG TABLET PO (08:56)
[2021-05-20] MEDS: HaloperidoL 5 MG TABLET PO ×2 (08:57→20:28)
[2021-05-20] MEDS: Celecoxib 200 MG CAPSULE PO (08:57)
[2021-05-20] MEDS: methIMAzole 10 MG TABLET PO (08:57)
[2021-05-20] MEDS: Dolutegravir Sodium 50 MG TABLET PO (08:57)
[2021-05-20] MEDS: Insulin Lispro 100 UNIT/ML 3 ML VIAL SUBCUT ×2 (12:13→20:44)
[2021-05-20 13:08] LABS: Glucose, Whole Blood 211 mg/dL (60-115)
[2021-05-20 17:15] LABS: Glucose, Whole Blood 162 mg/dL (60-115)
[2021-05-20 20:25] LABS: Glucose, Whole Blood 327 mg/dL (60-115)
[2021-05-20] MEDS: Omeprazole 20 MG CAPSULE.DR PO (20:28)
[2021-05-20] MEDS: Aspirin Enteric Coated 81 MG TABLET.DR PO (20:28)
[2021-05-20] MEDS: Divalproex Sodium ER 500 MG TAB.ER.24H 1000 MG PO (20:28)
[2021-05-20 20:35] VITALS: BP 165/74; PULSE 78; TEMP 36.6; O2SAT 97
[2021-05-20] MEDS: Insulin Glargine,Hum.rec.anlog 100 UNIT/ML 10 ML VIAL 60 UNIT SUBCUT (20:43)
[2021-05-21 09:07] LABS: Glucose, Whole Blood 49 mg/dL (60-115)
--- NOTE | 2021-05-21 09:32 | P.PNPSI_ITS ---
Subjective Subjective Date of Service: 05/21/21 Reason For Visit: Brief Psychotic d/o Subjective Notes: Section 12B Medical Problems Affecting Mental Status: No Interim History: Patient was seen and discussed in rounds today. There is a question about her legal status here. She does have a 12 be signed after CV was rejected but it is not clear whether it is up today or tomorrow. At any rate she is sad over being here for the holidays and not with her family. She continues to be compliant with treatment. Eating and sleeping adequately. No SI. No complaints or side effects. No changes were made Medication Compliance: Yes Side effects from medications: No Review of Systems Review of Systems Yes all other systems are reviewed and are negative Mental Status Exam Mental Status Exam Narrative: Patient was seen in rounds today. She has alert, pleasant and interactive within her means. She is able to communicate minimally because of language barrier. No acute signs observed. No SI/HI reported. Appears to be intact cognitively. Diagnostics Vital Signs (24Hr): Vital Signs - 24 hr 05/20/21 20:35 Temperature 97.9 F Pulse Rate 78 Blood Pressure 165/74 H Pulse Oximetry 97 BMI result Body Mass Index 33.3 Labs Results: 05/17/21 07:08 05/18/21 02:31 Labs: Laboratory Results - last 48 hr 05/19/21 05/19/21 05/19/21 12:43 17:50 20:33 POC Glucose 280 H 209 H 327 H 05/20/21 05/20/21 05/20/21 08:15 12:05 17:08 POC Glucose 51 L* 211 H 162 H 05/20/21 05/21/21 20:20 09:01 POC Glucose 327 H 49 L* Medications Medications Current Medications Acetaminophen (Acetaminophen 325 Mg Tablet) 650 mg PO Q8H PRN PRN Reason: Pain, Mild Last Admin: 05/17/21 15:04 Dose: 650 mg Documented by: Al Hydroxide/Mg Hydroxide (Magnesium Hydrox/Alum Hydrox 30 Ml Oral.Susp) 30 ml PO Q6H PRN PRN Reason: Heartburn/Nausea Amlodipine Besylate (Amlodipine Besylate 5 Mg Tablet) 5 mg PO DAILY [facility]; Protocol Last Admin: 05/20/21 08:56 Dose: 5 mg Documented by: Aspirin (Aspirin Enteric Coated 81 Mg Tablet.) 81 mg PO BEDTIME [facility] Last Admin: 05/20/21 20:28 Dose: 81 mg Documented by: Celecoxib (Celecoxib 200 Mg Capsule) 200 mg PO DAILY [facility] Last Admin: 05/20/21 08:57 Dose: 200 mg Documented by: Dextrose (Dextrose 50 % 25 Gm/50 Ml Vial) 25 gm IVPUSH Q15M PRN; Protocol PRN Reason: per Hypoglycemia Standing Ord. Divalproex Sodium (Divalproex Sodium Er 500 Mg Tab.Er.24h) 1,000 mg PO BEDTIME [facility] Last Admin: 05/20/21 20:28 Dose: 1,000 mg Documented by: Dolutegravir Sodium (Dolutegravir Sodium 50 Mg Tablet) 50 mg PO DAILY [facility] Last Admin: 05/20/21 08:57 Dose: 50 mg Documented by: Glucose (Glucose Gel 15 Gm Gel..Gram.) 15 gm PO Q15M PRN; Protocol PRN Reason: per Hypoglycemia Standing Ord. Haloperidol (Haloperidol 5 Mg Tablet) 5 mg PO BID [facility] Last Admin: 05/20/21 20:28 Dose: 5 mg Documented by: Hydroxyzine HCl (Hydroxyzine Hcl 25 Mg Tablet) 25 mg PO BEDTIME PRN PRN Reason: Anxiety Insulin Glargine (Insulin Glargine,Hum.Rec.Anlog 100 Unit/Ml 10 Ml Vial) 60 unit SUBCUT BEDTIME [facility] Last Admin: 05/20/21 20:43 Dose: 60 unit Documented by: Insulin Human Lispro (Insulin Lispro 100 Unit/Ml 3 Ml Vial) 10 unit SUBCUT BID [facility] Last Admin: 05/17/21 20:25 Dose: 10 unit Documented by: Insulin Human Lispro (Insulin Lispro 100 Unit/Ml 3 Ml Vial) 0 unit SUBCUT QIDACHS [facility]; Protocol Last Admin: 05/20/21 20:44 Dose: 8 unit Documented by: Magnesium Hydroxide (Milk Of Magnesia 30 Ml Oral.Susp) 30 ml PO DAILY PRN PRN Reason: Constipation Methimazole (Methimazole 10 Mg Tablet) 10 mg PO DAILY [facility] Last Admin: 05/20/21 08:57 Dose: 10 mg Documented by: Nicotine (Nicotine 21 Mg Patch.Td24) 21 mg TRANSDERMA DAILY [facility] Last Admin: 05/20/21 09:02 Dose: Not Given Documented by: Nicotine Polacrilex (Nicotine Polacrilex 2 Mg Gum) 2 mg BUCCAL Q2H PRN PRN Reason: craving Omeprazole (Omeprazole 20 Mg Capsule.) 20 mg PO BEDTIME [facility] Last Admin: 05/20/21 20:28 Dose: 20 mg Documented by: Quetiapine Fumarate (Quetiapine Fumarate 200 Mg Tablet) 200 mg PO BEDTIME PRN PRN Reason: insomnia Tramadol HCl (Tramadol Hcl 50 Mg Tablet) 50 mg PO BID PRN PRN Reason: Pain, Mild (Pain Scale 1-3) Allergies Allergies Allergy/AdvReac Type Severity Reaction Status Date / Time morphine Allergy Itching Verified 05/16/21 21:20 Assessment & Plan Assessment & Plan (1) Bipolar I disorder with samson: Status: Acute Code(s): F31.10 - Bipolar disorder, current episode manic without psychotic features, unspecified (2) Hypertension: Status: Acute Code(s): I10 - Essential (primary) hypertension (3) Diabetes: Status: Acute Code(s): E11.9 - Type 2 diabetes mellitus without complications Assessment and Plan: 1) samson - VPA 1000 mg at HS, haldol 5 BID. much improved in less than 24H on this regimen. 2) DM - per medicine. SSI in place. 3) HTN - norvasc 5. 4) dispo - pending inpt stabilization. 05/19: Continue current regimen with no changes implemented today 05/20: Continue current plans 05/21: Continue current regimen and plans. Clarified legal status on 05/22 I spent minutes with the patient and/or on the patient floor today, greater than?50% of which was spent counseling/coordinating care. Reason for contiued inpatient stay Substantial Risk for: other
[2021-05-21 09:55] VITALS: BP 129/67; PULSE 75; RESP 16; TEMP 36.6; O2SAT 100
[2021-05-21 10:06] LABS: Glucose, Whole Blood 144 mg/dL (60-115)
[2021-05-21 10:33] VITALS: BP 129/67; PULSE 75
[2021-05-21] MEDS: Celecoxib 200 MG CAPSULE PO (10:33)
[2021-05-21] MEDS: amLODIPine Besylate 5 MG TABLET PO (10:33)
[2021-05-21] MEDS: HaloperidoL 5 MG TABLET PO ×2 (10:33→20:48)
[2021-05-21] MEDS: methIMAzole 10 MG TABLET PO (10:34)
[2021-05-21] MEDS: Dolutegravir Sodium 50 MG TABLET PO (10:34)
[2021-05-21 12:48] LABS: Glucose, Whole Blood 213 mg/dL (60-115)
[2021-05-21] MEDS: Insulin Lispro 100 UNIT/ML 3 ML VIAL SUBCUT ×2 (12:48→17:35)
[2021-05-21 17:35] LABS: Glucose, Whole Blood 154 mg/dL (60-115)
[2021-05-21 18:00] VITALS: BP 153/69; PULSE 78; RESP 18; TEMP 36.6; O2SAT 97
[2021-05-21] MEDS: Insulin Glargine,Hum.rec.anlog 100 UNIT/ML 10 ML VIAL 60 UNIT SUBCUT (20:46)
[2021-05-21] MEDS: Divalproex Sodium ER 500 MG TAB.ER.24H 1000 MG PO (20:48)
[2021-05-21] MEDS: Aspirin Enteric Coated 81 MG TABLET.DR PO (20:48)
[2021-05-21] MEDS: Omeprazole 20 MG CAPSULE.DR PO (20:48)
[2021-05-21 21:00] LABS: Glucose, Whole Blood 278 mg/dL (60-115)
--- NOTE | 2021-05-22 00:57 | PC.NURSE ---
The last 2 nights Beatrice was given 2100 lispro her blood sugar in the am were below normal. On 05/20 was 51 and on 05/21 was 49. Beatrice's BSL at 2030 was 278. Nurse decided not to give coverage to see if the Latus she was given would help lower the level. Nurse will monitor and check bsl in am.
[2021-05-22 05:15] LABS: Glucose, Whole Blood 104 mg/dL (60-115)
[2021-05-22 08:10] VITALS: BP 139/62; PULSE 68; RESP 18; TEMP 36.7; O2SAT 98
[2021-05-22 08:12] VITALS: BP 139/62; PULSE 68
[2021-05-22] MEDS: amLODIPine Besylate 5 MG TABLET PO (08:12)
[2021-05-22] MEDS: Dolutegravir Sodium 50 MG TABLET PO (08:13)
[2021-05-22] MEDS: methIMAzole 10 MG TABLET PO (08:13)
[2021-05-22] MEDS: HaloperidoL 5 MG TABLET PO ×2 (08:13→21:16)
[2021-05-22] MEDS: Celecoxib 200 MG CAPSULE PO (08:13)
--- NOTE | 2021-05-22 08:57 | P.PNPSI_ITS ---
Subjective Subjective Date of Service: 05/22/21 Reason For Visit: Brief Psychotic d/o Subjective Notes: Conditional Voluntary Interim History: Pt pleasant, asking if she can return home today. Pt explained that and family has expressed that pt not able to return home. This financial underwriter tried calling family several times but unable to reach anyone. Pt today reports she does not have any plan or intent to hurt her family or . She still thinks he has been unfaithful but does admit she does not have any proof other than he goes out of the house. Pt also suspects her money has been stolen, again without any evidence of that. There has been increasingly concern as to pt cognitive ability. MOCA completed today- pt scored 6/30- severe impairment in executive function, naming (0/3), recall (0/5), attention, language fluency and repetition, less impairment on orientation. We discussed further imaging but does appear that pt may have underlying major neurocognitive decline. Review of Systems Review of Systems Yes all other systems are reviewed and are negative Mental Status Exam Mental Status Exam Narrative: Pt wearing hospital gown, in NAD. Pt pleasant, somewhat anxious. No psychomotor agitation or retardation noted. Some choreic movement noted when pt walking. Speech is mumbles at times, TP: disorganized at times, no overt loose associations. TC: some paranoia related to having affairs and money being stolen from her but less animosity related to these beliefs. Pt denies SI/HI. No signs of VH/AH. Memory/cog: severely impaired- MOCA on 05/22- pt scored 6/30- severe impairment in executive function, naming (0/3), recall (0/5), attention, language fluency and repetition, less impairment on orientation. We discussed further imaging but does appear that pt may have underlying major neurocognitive disorder. Diagnostics Vital Signs (24Hr): Vital Signs - 24 hr 05/22/21 21:12 Temperature 98.0 F Pulse Rate 84 Respiratory Rate 18 Blood Pressure 173/75 H Pulse Oximetry 96 BMI result Body Mass Index 33.3 Labs Results: 05/17/21 07:08 05/22/21 09:53 Labs: Laboratory Results - last 48 hr 05/21/21 05/21/21 05/21/21 09:01 10:00 12:43 Sodium Potassium Chloride Carbon Dioxide Anion Gap BUN Creatinine Estim Creat Clear Calc Estimated GFR POC Glucose 49 L* 144 H 213 H Random Glucose Estimat Average Glucose Hemoglobin A1c % Calcium Total Bilirubin AST ALT Alkaline Phosphatase Total Protein Albumin Triglycerides Cholesterol LDL Cholesterol, Calc HDL Cholesterol Valproic Acid 05/21/21 05/21/21 05/22/21 17:31 20:45 05:07 Sodium Potassium Chloride Carbon Dioxide Anion Gap BUN Creatinine Estim Creat Clear Calc Estimated GFR POC Glucose 154 H 278 H 104 Random Glucose Estimat Average Glucose Hemoglobin A1c % Calcium Total Bilirubin AST ALT Alkaline Phosphatase Total Protein Albumin Triglycerides Cholesterol LDL Cholesterol, Calc HDL Cholesterol Valproic Acid 05/22/21 05/22/21 05/22/21 09:02 09:53 09:53 Sodium 139 Potassium 4.3 Chloride 105 Carbon Dioxide 29 Anion Gap 9 L BUN 21 H Creatinine 1.10 Estim Creat Clear Calc 65.8 Estimated GFR 52 POC Glucose 88 Random Glucose 121 H Estimat Average Glucose 226 Hemoglobin A1c % 9.5 Calcium 9.4 Total Bilirubin 0.3 AST 13 ALT 16 Alkaline Phosphatase 118 H Total Protein 6.8 Albumin 4.0 Triglycerides 98 Cholesterol 178 LDL Cholesterol, Calc 129 HDL Cholesterol 30 Valproic Acid 05/22/21 05/22/21 05/22/21 12:46 17:08 17:37 Sodium Potassium Chloride Carbon Dioxide Anion Gap BUN Creatinine Estim Creat Clear Calc Estimated GFR POC Glucose 130 H 288 H Random Glucose Estimat Average Glucose Hemoglobin A1c % Calcium Total Bilirubin AST ALT Alkaline Phosphatase Total Protein Albumin Triglycerides Cholesterol LDL Cholesterol, Calc HDL Cholesterol Valproic Acid 60.6 05/22/21 05/23/21 05/23/21 21:04 06:45 07:27 Sodium Potassium Chloride Carbon Dioxide Anion Gap BUN Creatinine Estim Creat Clear Calc Estimated GFR POC Glucose 301 H 58 L* 132 H Random Glucose Estimat Average Glucose Hemoglobin A1c % Calcium Total Bilirubin AST ALT Alkaline Phosphatase Total Protein Albumin Triglycerides Cholesterol LDL Cholesterol, Calc HDL Cholesterol Valproic Acid Imaging Radiology Impressions: ITS Impressions Chest X-Ray 05/22/21 19:54 IMPRESSION: 1. Cholecystectomy clips project over the right upper abdomen. 2. Two, metallic fixation brackets and screws are seen along the left occipital region around the site of prior surgery/craniotomy. KUB X-Ray 05/22/21 19:54 IMPRESSION: 1. Cholecystectomy clips project over the right upper abdomen. 2. Two, metallic fixation brackets and screws are seen along the left occipital region around the site of prior surgery/craniotomy. Skull X-Ray 05/22/21 19:54 IMPRESSION: 1. Cholecystectomy clips project over the right upper abdomen. 2. Two, metallic fixation brackets and screws are seen along the left occipital region around the site of prior surgery/craniotomy. Medications Medications Current Medications Acetaminophen (Acetaminophen 325 Mg Tablet) 650 mg PO Q8H PRN PRN Reason: Pain, Mild Last Admin: 05/17/21 15:04 Dose: 650 mg Documented by: Al Hydroxide/Mg Hydroxide (Magnesium Hydrox/Alum Hydrox 30 Ml Oral.Susp) 30 ml PO Q6H PRN PRN Reason: Heartburn/Nausea Amlodipine Besylate (Amlodipine Besylate 5 Mg Tablet) 5 mg PO DAILY [facility]; Protocol Last Admin: 05/22/21 08:12 Dose: 5 mg Documented by: Aspirin (Aspirin Enteric Coated 81 Mg Tablet.) 81 mg PO BEDTIME [facility] Last Admin: 05/22/21 21:17 Dose: 81 mg Documented by: Celecoxib (Celecoxib 200 Mg Capsule) 200 mg PO DAILY [facility] Last Admin: 05/22/21 08:13 Dose: 200 mg Documented by: Dextrose (Dextrose 50 % 25 Gm/50 Ml Vial) 25 gm IVPUSH Q15M PRN; Protocol PRN Reason: per Hypoglycemia Standing Ord. Divalproex Sodium (Divalproex Sodium Er 500 Mg Tab.Er.24h) 1,000 mg PO BEDTIME [facility] Last Admin: 05/22/21 21:17 Dose: 1,000 mg Documented by: Dolutegravir Sodium (Dolutegravir Sodium 50 Mg Tablet) 50 mg PO DAILY [facility] Last Admin: 05/22/21 08:13 Dose: 50 mg Documented by: Glucose (Glucose Gel 15 Gm Gel..Gram.) 15 gm PO Q15M PRN; Protocol PRN Reason: per Hypoglycemia Standing Ord. Haloperidol (Haloperidol 5 Mg Tablet) 5 mg PO BID [facility] Last Admin: 05/22/21 21:16 Dose: 5 mg Documented by: Hydroxyzine HCl (Hydroxyzine Hcl 25 Mg Tablet) 25 mg PO BEDTIME PRN PRN Reason: Anxiety Insulin Glargine (Insulin Glargine,Hum.Rec.Anlog 100 Unit/Ml 10 Ml Vial) 60 unit SUBCUT BEDTIME [facility] Last Admin: 05/22/21 21:18 Dose: 60 unit Documented by: Insulin Human Lispro (Insulin Lispro 100 Unit/Ml 3 Ml Vial) 10 unit SUBCUT BID [facility] Last Admin: 05/17/21 20:25 Dose: 10 unit Documented by: Insulin Human Lispro (Insulin Lispro 100 Unit/Ml 3 Ml Vial) 0 unit SUBCUT QIDACHS [facility]; Protocol Last Admin: 05/22/21 22:18 Dose: Not Given Documented by: Magnesium Hydroxide (Milk Of Magnesia 30 Ml Oral.Susp) 30 ml PO DAILY PRN PRN Reason: Constipation Methimazole (Methimazole 10 Mg Tablet) 10 mg PO DAILY [facility] Last Admin: 05/22/21 08:13 Dose: 10 mg Documented by: Nicotine (Nicotine 21 Mg Patch.Td24) 21 mg TRANSDERMA DAILY [facility] Last Admin: 05/22/21 10:40 Dose: Not Given Documented by: Nicotine Polacrilex (Nicotine Polacrilex 2 Mg Gum) 2 mg BUCCAL Q2H PRN PRN Reason: craving Omeprazole (Omeprazole 20 Mg Capsule.Dr) 20 mg PO BEDTIME [facility] Last Admin: 05/22/21 21:16 Dose: 20 mg Documented by: Quetiapine Fumarate (Quetiapine Fumarate 200 Mg Tablet) 200 mg PO BEDTIME PRN PRN Reason: insomnia Allergies Allergies Allergy/AdvReac Type Severity Reaction Status Date / Time morphine Allergy Itching Verified 05/16/21 21:20 Assessment & Plan Assessment & Plan (1) Bipolar I disorder with samosn: Status: Acute Code(s): F31.10 - Bipolar disorder, current episode manic without psychotic features, unspecified (2) Hypertension: Status: Acute Code(s): I10 - Essential (primary) hypertension (3) Diabetes: Status: Acute Code(s): E11.9 - Type 2 diabetes mellitus without complications Assessment and Plan: 1) samson - VPA 1000 mg at HS, haldol 5 BID. much improved in less than 24H on this regimen. 2) DM - per medicine. SSI in place. 3) HTN - norvasc 5. 4) dispo - pending inpt stabilization. 05/19: Continue current regimen with no changes implemented today 05/20: Continue current plans 05/21: Continue current regimen and plans. Clarified legal status on 05/22 05/22MOCA completed today- pt scored 6/30- severe impairment in executive function, naming (0/3), recall (0/5), attention, language fluency and repetition, less impairment on orientation. We discussed further imaging but does appear that pt may have underlying major neurocognitive decline. Pt explained reasons for being in hospital for further assessment of cognitive status and ability to care for self. Pt agreed to stay in hospital and showed basic understanding about why she is here. Therefore CV was offered and accepted. I spent minutes with the patient and/or on the patient floor today, greater than?50% of which was spent counseling/coordinating care. Reason for contiued inpatient stay Substantial Risk for: inability to function
[2021-05-22 09:06] LABS: Glucose, Whole Blood 88 mg/dL (60-115)
[2021-05-22 10:14] LABS: Estimated Average Glucose 226 mg/dL; Hemoglobin A1c % 9.5 %
[2021-05-22 10:37] LABS: Alanine Aminotransferase 16 U/L (0-31); Alkaline Phosphatase 118 U/L (39-117); Anion Gap 9 (12-20); Aspartate Amino Transferase 13 U/L (5-31); Bilirubin Total 0.3 mg/dL (0.0-1.0); Blood Urea Nitrogen 21 mg/dL (9-16); Calcium 9.4 mg/dL (8.4-10.2); Carbon Dioxide 29 mmol/L (22-29); Chloride 105 mmol/L (96-108); Cholesterol 178 mg/dL; Creatinine Clr Calc Pharmacy 65.8; Estimated Glomerular Filt Rate 52; Glucose Random 121 mg/dL (60-115); HDL Cholesterol 30 mg/dL; LDL Cholesterol Calculated 129 mg/dl; Potassium 4.3 mmol/L (3.3-5.1); Sodium 139 mmol/L (135-145); Total Protein 6.8 g/dL (6.5-8.0); Triglycerides 98 mg/dL
[2021-05-22 12:50] LABS: Glucose, Whole Blood 130 mg/dL (60-115)
[2021-05-22 17:39] LABS: Valproate 60.6 mcg/mL (50.0-100.0)
[2021-05-22 17:42] LABS: Glucose, Whole Blood 288 mg/dL (60-115)
[2021-05-22] MEDS: Insulin Lispro 100 UNIT/ML 3 ML VIAL SUBCUT (17:47)
[2021-05-22 21:12] VITALS: BP 173/75; PULSE 84; RESP 18; TEMP 36.7; O2SAT 96
[2021-05-22 21:13] LABS: Glucose, Whole Blood 301 mg/dL (60-115)
[2021-05-22] MEDS: Omeprazole 20 MG CAPSULE.DR PO (21:16)
[2021-05-22] MEDS: Divalproex Sodium ER 500 MG TAB.ER.24H 1000 MG PO (21:17)
[2021-05-22] MEDS: Aspirin Enteric Coated 81 MG TABLET.DR PO (21:17)
[2021-05-22] MEDS: Insulin Glargine,Hum.rec.anlog 100 UNIT/ML 10 ML VIAL 60 UNIT SUBCUT (21:18)
[2021-05-23 07:32] LABS: Glucose, Whole Blood 58 mg/dL (60-115)
[2021-05-23 07:32] LABS: Glucose, Whole Blood 132 mg/dL (60-115)
--- NOTE | 2021-05-23 08:41 | HO.PSYCHPN ---
Subjective Subjective Date of Service: 05/23/21 Reason For Visit: Brief Psychotic d/o Subjective Notes: Conditional Voluntary Interim History: Pt somewhat irritable, stating she wants to go back home. pt informed she can't return home per documentation from ED, and that we have not been able to contact family. Pt denies SI/HI. However, she presents with very little insight as to why she is in the hospital. Pt cognitively impaired and not safe to live by her own. Medication Compliance: Yes Side effects from medications: No Review of Systems Review of Systems Yes all other systems are reviewed and are negative Mental Status Exam Mental Status Exam Narrative: Pt wearing hospital gown, in NAD. Pt pleasant, somewhat anxious. No psychomotor agitation or retardation noted. Some choreic movement noted when pt walking. Speech is mumbles at times, TP: disorganized at times, no overt loose associations. TC: some paranoia related to having affairs and money being stolen from her but less animosity related to these beliefs. Pt denies SI/HI. No signs of VH/AH. Memory/cog: severely impaired- MOCA on 05/22- pt scored 6/30- severe impairment in executive function, naming (0/3), recall (0/5), attention, language fluency and repetition, less impairment on orientation. We discussed further imaging but does appear that pt may have underlying major neurocognitive disorder. Diagnostics Vital Signs (24Hr): Vital Signs - 24 hr 05/23/21 09:32 05/23/21 09:45 05/23/21 20:58 Temperature 97.7 F 97.9 F Pulse Rate 87 87 81 Respiratory Rate 17 Blood Pressure 144/65 H 144/65 H 155/67 H Pulse Oximetry 99 100 BMI result Body Mass Index 33.3 Labs Results: 05/17/21 07:08 05/22/21 09:53 Labs: Laboratory Results - last 48 hr 05/22/21 05/22/21 05/22/21 09:02 09:53 09:53 Sodium 139 Potassium 4.3 Chloride 105 Carbon Dioxide 29 Anion Gap 9 L BUN 21 H Creatinine 1.10 Estim Creat Clear Calc 65.8 Estimated GFR 52 POC Glucose 88 Random Glucose 121 H Estimat Average Glucose 226 Hemoglobin A1c % 9.5 Calcium 9.4 Total Bilirubin 0.3 AST 13 ALT 16 Alkaline Phosphatase 118 H Total Protein 6.8 Albumin 4.0 Triglycerides 98 Cholesterol 178 LDL Cholesterol, Calc 129 HDL Cholesterol 30 Valproic Acid 05/22/21 05/22/21 05/22/21 12:46 17:08 17:37 Sodium Potassium Chloride Carbon Dioxide Anion Gap BUN Creatinine Estim Creat Clear Calc Estimated GFR POC Glucose 130 H 288 H Random Glucose Estimat Average Glucose Hemoglobin A1c % Calcium Total Bilirubin AST ALT Alkaline Phosphatase Total Protein Albumin Triglycerides Cholesterol LDL Cholesterol, Calc HDL Cholesterol Valproic Acid 60.6 05/22/21 05/23/21 05/23/21 21:04 06:45 07:27 Sodium Potassium Chloride Carbon Dioxide Anion Gap BUN Creatinine Estim Creat Clear Calc Estimated GFR POC Glucose 301 H 58 L* 132 H Random Glucose Estimat Average Glucose Hemoglobin A1c % Calcium Total Bilirubin AST ALT Alkaline Phosphatase Total Protein Albumin Triglycerides Cholesterol LDL Cholesterol, Calc HDL Cholesterol Valproic Acid 05/23/21 05/23/21 05/23/21 08:55 12:35 17:48 Sodium Potassium Chloride Carbon Dioxide Anion Gap BUN Creatinine Estim Creat Clear Calc Estimated GFR POC Glucose 137 H 122 H 67 Random Glucose Estimat Average Glucose Hemoglobin A1c % Calcium Total Bilirubin AST ALT Alkaline Phosphatase Total Protein Albumin Triglycerides Cholesterol LDL Cholesterol, Calc HDL Cholesterol Valproic Acid 05/23/21 05/24/21 05/24/21 20:18 06:57 07:34 Sodium Potassium Chloride Carbon Dioxide Anion Gap BUN Creatinine Estim Creat Clear Calc Estimated GFR POC Glucose 165 H 51 L* 103 Random Glucose Estimat Average Glucose Hemoglobin A1c % Calcium Total Bilirubin AST ALT Alkaline Phosphatase Total Protein Albumin Triglycerides Cholesterol LDL Cholesterol, Calc HDL Cholesterol Valproic Acid Imaging Radiology Impressions: ITS Impressions Chest X-Ray 05/22/21 19:54 IMPRESSION: 1. Cholecystectomy clips project over the right upper abdomen. 2. Two, metallic fixation brackets and screws are seen along the left occipital region around the site of prior surgery/craniotomy. KUB X-Ray 05/22/21 19:54 IMPRESSION: 1. Cholecystectomy clips project over the right upper abdomen. 2. Two, metallic fixation brackets and screws are seen along the left occipital region around the site of prior surgery/craniotomy. Skull X-Ray 05/22/21 19:54 IMPRESSION: 1. Cholecystectomy clips project over the right upper abdomen. 2. Two, metallic fixation brackets and screws are seen along the left occipital region around the site of prior surgery/craniotomy. Head CT 05/23/21 16:16 IMPRESSION: No acute intracranial pathology. Medications Medications Current Medications Acetaminophen (Acetaminophen 325 Mg Tablet) 650 mg PO Q8H PRN PRN Reason: Pain, Mild Last Admin: 05/17/21 15:04 Dose: 650 mg Documented by: Al Hydroxide/Mg Hydroxide (Magnesium Hydrox/Alum Hydrox 30 Ml Oral.Susp) 30 ml PO Q6H PRN PRN Reason: Heartburn/Nausea Amlodipine Besylate (Amlodipine Besylate 5 Mg Tablet) 5 mg PO DAILY [facility]; Protocol Last Admin: 05/23/21 09:45 Dose: 5 mg Documented by: Aspirin (Aspirin Enteric Coated 81 Mg Tablet.) 81 mg PO BEDTIME [facility] Last Admin: 05/23/21 21:06 Dose: 81 mg Documented by: Celecoxib (Celecoxib 200 Mg Capsule) 200 mg PO DAILY [facility] Last Admin: 05/23/21 09:45 Dose: 200 mg Documented by: Dextrose (Dextrose 50 % 25 Gm/50 Ml Vial) 25 gm IVPUSH Q15M PRN; Protocol PRN Reason: per Hypoglycemia Standing Ord. Divalproex Sodium (Divalproex Sodium Er 500 Mg Tab.Er.24h) 1,000 mg PO BEDTIME [facility] Last Admin: 05/23/21 21:06 Dose: 1,000 mg Documented by: Dolutegravir Sodium (Dolutegravir Sodium 50 Mg Tablet) 50 mg PO DAILY [facility] Last Admin: 05/23/21 09:46 Dose: 50 mg Documented by: Glucose (Glucose Gel 15 Gm Gel..Gram.) 15 gm PO Q15M PRN; Protocol PRN Reason: per Hypoglycemia Standing Ord. Haloperidol (Haloperidol 5 Mg Tablet) 5 mg PO BID [facility] Last Admin: 05/23/21 21:06 Dose: 5 mg Documented by: Hydroxyzine HCl (Hydroxyzine Hcl 25 Mg Tablet) 25 mg PO BEDTIME PRN PRN Reason: Anxiety Insulin Glargine (Insulin Glargine,Hum.Rec.Anlog 100 Unit/Ml 10 Ml Vial) 40 unit SUBCUT BEDTIME [facility] Insulin Human Lispro (Insulin Lispro 100 Unit/Ml 3 Ml Vial) 0 unit SUBCUT QIDACHS [facility]; Protocol Last Admin: 05/23/21 21:05 Dose: 2 unit Documented by: Magnesium Hydroxide (Milk Of Magnesia 30 Ml Oral.Susp) 30 ml PO DAILY PRN PRN Reason: Constipation Methimazole (Methimazole 10 Mg Tablet) 10 mg PO DAILY [facility] Last Admin: 05/23/21 09:46 Dose: 10 mg Documented by: Nicotine (Nicotine 21 Mg Patch.Td24) 21 mg TRANSDERMA DAILY [facility] Last Admin: 05/23/21 09:45 Dose: Not Given Documented by: Nicotine Polacrilex (Nicotine Polacrilex 2 Mg Gum) 2 mg BUCCAL Q2H PRN PRN Reason: craving Omeprazole (Omeprazole 20 Mg Capsule.Dr) 20 mg PO BEDTIME [facility] Last Admin: 05/23/21 21:06 Dose: 20 mg Documented by: Quetiapine Fumarate (Quetiapine Fumarate 200 Mg Tablet) 200 mg PO BEDTIME PRN PRN Reason: insomnia Allergies Allergies Allergy/AdvReac Type Severity Reaction Status Date / Time morphine Allergy Itching Verified 05/16/21 21:20 Assessment & Plan Assessment & Plan (1) Bipolar I disorder with samson: Status: Acute Code(s): F31.10 - Bipolar disorder, current episode manic without psychotic features, unspecified (2) Hypertension: Status: Acute Code(s): I10 - Essential (primary) hypertension (3) Diabetes: Status: Acute Code(s): E11.9 - Type 2 diabetes mellitus without complications Assessment and Plan: 1) samson - VPA 1000 mg at HS, haldol 5 BID. much improved in less than 24H on this regimen. 2) DM - per medicine. SSI in place. 3) HTN - norvasc 5. 4) dispo - pending inpt stabilization. 05/19: Continue current regimen with no changes implemented today 05/20: Continue current plans 05/21: Continue current regimen and plans. Clarified legal status on 05/22 05/22MOCA completed today- pt scored 6/30- severe impairment in executive function, naming (0/3), recall (0/5), attention, language fluency and repetition, less impairment on orientation. We discussed further imaging but does appear that pt may have underlying major neurocognitive decline. Pt explained reasons for being in hospital for further assessment of cognitive status and ability to care for self. Pt agreed to stay in hospital and showed basic understanding about why she is here. Therefore CV was offered and accepted. I spent minutes with the patient and/or on the patient floor today, greater than?50% of which was spent counseling/coordinating care. Reason for contiued inpatient stay Substantial Risk for: inability to function
[2021-05-23 09:04] LABS: Glucose, Whole Blood 137 mg/dL (60-115)
[2021-05-23 09:32] VITALS: BP 144/65; PULSE 87; RESP 17; TEMP 36.5; O2SAT 99
[2021-05-23 09:45] VITALS: BP 144/65; PULSE 87
[2021-05-23] MEDS: amLODIPine Besylate 5 MG TABLET PO (09:45)
[2021-05-23] MEDS: Celecoxib 200 MG CAPSULE PO (09:45)
[2021-05-23] MEDS: HaloperidoL 5 MG TABLET PO ×2 (09:45→21:06)
[2021-05-23] MEDS: methIMAzole 10 MG TABLET PO (09:46)
[2021-05-23] MEDS: Dolutegravir Sodium 50 MG TABLET PO (09:46)
[2021-05-23 12:45] LABS: Glucose, Whole Blood 122 mg/dL (60-115)
[2021-05-23 17:54] LABS: Glucose, Whole Blood 67 mg/dL (60-115)
[2021-05-23 20:23] LABS: Glucose, Whole Blood 165 mg/dL (60-115)
[2021-05-23 20:58] VITALS: BP 155/67; PULSE 81; TEMP 36.6; O2SAT 100
[2021-05-23] MEDS: Insulin Glargine,Hum.rec.anlog 100 UNIT/ML 10 ML VIAL 60 UNIT SUBCUT (21:03)
[2021-05-23] MEDS: Insulin Lispro 100 UNIT/ML 3 ML VIAL SUBCUT (21:05)
[2021-05-23] MEDS: Aspirin Enteric Coated 81 MG TABLET.DR PO (21:06)
[2021-05-23] MEDS: Omeprazole 20 MG CAPSULE.DR PO (21:06)
[2021-05-23] MEDS: Divalproex Sodium ER 500 MG TAB.ER.24H 1000 MG PO (21:06)
--- NOTE | 2021-05-23 21:10 | PC.NURSE ---
drooling-pt seen drooling when in conversation, eating and when taking medications.
[2021-05-24 06:00] VITALS: BP 156/70; PULSE 88; RESP 16; TEMP 36.5; O2SAT 96
[2021-05-24 07:02] LABS: Glucose, Whole Blood 51 mg/dL (60-115)
--- NOTE | 2021-05-24 07:05 | PC.NURSE ---
POC 51. diaphoretic and tremors noted. accepted orange juice. with 1:1 staffing until symptoms subside.
--- NOTE | 2021-05-24 07:08 | PC.NURSE ---
hospitalist notified of POC 51
[2021-05-24 07:38] LABS: Glucose, Whole Blood 103 mg/dL (60-115)
--- NOTE | 2021-05-24 07:42 | PC.NURSE ---
repeat POC 103. no longer diaphoretic. HS insulin adjusted and decreased to 40 units.
[2021-05-24 09:22] VITALS: BP 156/70; PULSE 74
[2021-05-24] MEDS: amLODIPine Besylate 5 MG TABLET PO (09:22)
[2021-05-24] MEDS: HaloperidoL 5 MG TABLET PO (09:22)
[2021-05-24] MEDS: Celecoxib 200 MG CAPSULE PO (09:22)
[2021-05-24] MEDS: Dolutegravir Sodium 50 MG TABLET PO (09:23)
[2021-05-24] MEDS: methIMAzole 10 MG TABLET PO (09:23)
[2021-05-24 12:26] LABS: Glucose, Whole Blood 134 mg/dL (60-115)
--- NOTE | 2021-05-24 12:40 | HO.PSYCHPN ---
Subjective Subjective Date of Service: 05/24/21 Reason For Visit: Brief Psychotic d/o Subjective Notes: Conditional Voluntary Interim History: Pt somewhat irritable, stating she wants to go back home. pt informed she can't return home per documentation from ED, and that we have not been able to contact family. Pt denies SI/HI. However, she presents with very little insight as to why she is in the hospital. Finally able to speak with her son, Fan who reports he is willing to take his mother back home. Per son, pt's irritability, labile mood, paranoid delusions fairly new, he does report pt appears with cognitive decline. Provided education to family about neurocognitive disorder. Medication Compliance: Yes Side effects from medications: No Review of Systems Review of Systems Yes all other systems are reviewed and are negative Mental Status Exam Mental Status Exam Narrative: Pt wearing hospital gown, in NAD. Pt pleasant, somewhat anxious. No psychomotor agitation or retardation noted. Some choreic movement noted when pt walking. Speech is mumbles at times, TP: disorganized at times, no overt loose associations. TC: some paranoia related to having affairs and money being stolen from her but less animosity related to these beliefs. Pt denies SI/HI. No signs of VH/AH. Memory/cog: severely impaired- MOCA on 05/22- pt scored 6/30- severe impairment in executive function, naming (0/3), recall (0/5), attention, language fluency and repetition, less impairment on orientation. We discussed further imaging but does appear that pt may have underlying major neurocognitive disorder. Diagnostics Vital Signs (24Hr): Vital Signs - 24 hr 05/23/21 20:58 05/24/21 06:00 05/24/21 09:22 Temperature 97.9 F 97.7 F Pulse Rate 81 88 74 Respiratory Rate 16 Blood Pressure 155/67 H 156/70 H 156/70 H Pulse Oximetry 100 96 BMI result Body Mass Index 33.3 Labs Results: 05/17/21 07:08 05/22/21 09:53 Labs: Laboratory Results - last 48 hr 05/22/21 05/22/21 05/22/21 12:46 17:08 17:37 POC Glucose 130 H 288 H Valproic Acid 60.6 05/22/21 05/23/21 05/23/21 21:04 06:45 07:27 POC Glucose 301 H 58 L* 132 H Valproic Acid 05/23/21 05/23/21 05/23/21 08:55 12:35 17:48 POC Glucose 137 H 122 H 67 Valproic Acid 05/23/21 05/24/21 05/24/21 20:18 06:57 07:34 POC Glucose 165 H 51 L* 103 Valproic Acid 05/24/21 12: POC Glucose 134 H Valproic Acid Imaging Radiology Impressions: ITS Impressions Chest X-Ray 05/22/21 19:54 IMPRESSION: 1. Cholecystectomy clips project over the right upper abdomen. 2. Two, metallic fixation brackets and screws are seen along the left occipital region around the site of prior surgery/craniotomy. KUB X-Ray 05/22/21 19:54 IMPRESSION: 1. Cholecystectomy clips project over the right upper abdomen. 2. Two, metallic fixation brackets and screws are seen along the left occipital region around the site of prior surgery/craniotomy. Skull X-Ray 05/22/21 19:54 IMPRESSION: 1. Cholecystectomy clips project over the right upper abdomen. 2. Two, metallic fixation brackets and screws are seen along the left occipital region around the site of prior surgery/craniotomy. Head CT 05/23/21 16:16 IMPRESSION: No acute intracranial pathology. Medications Medications Current Medications Acetaminophen (Acetaminophen 325 Mg Tablet) 650 mg PO Q8H PRN PRN Reason: Pain, Mild Last Admin: 05/17/21 15:04 Dose: 650 mg Documented by: Al Hydroxide/Mg Hydroxide (Magnesium Hydrox/Alum Hydrox 30 Ml Oral.Susp) 30 ml PO Q6H PRN PRN Reason: Heartburn/Nausea Amlodipine Besylate (Amlodipine Besylate 5 Mg Tablet) 5 mg PO DAILY [facility]; Protocol Last Admin: 05/24/21 09:22 Dose: 5 mg Documented by: Aspirin (Aspirin Enteric Coated 81 Mg Tablet.Dr) 81 mg PO BEDTIME [facility] Last Admin: 05/23/21 21:06 Dose: 81 mg Documented by: Celecoxib (Celecoxib 200 Mg Capsule) 200 mg PO DAILY [facility] Last Admin: 05/24/21 09:22 Dose: 200 mg Documented by: Dextrose (Dextrose 50 % 25 Gm/50 Ml Vial) 25 gm IVPUSH Q15M PRN; Protocol PRN Reason: per Hypoglycemia Standing Ord. Divalproex Sodium (Divalproex Sodium Er 500 Mg Tab.Er.24h) 1,000 mg PO BEDTIME [facility] Last Admin: 05/23/21 21:06 Dose: 1,000 mg Documented by: Dolutegravir Sodium (Dolutegravir Sodium 50 Mg Tablet) 50 mg PO DAILY [facility] Last Admin: 05/24/21 09:23 Dose: 50 mg Documented by: Glucose (Glucose Gel 15 Gm Gel..Gram.) 15 gm PO Q15M PRN; Protocol PRN Reason: per Hypoglycemia Standing Ord. Haloperidol (Haloperidol 5 Mg Tablet) 5 mg PO BEDTIME [facility] Hydroxyzine HCl (Hydroxyzine Hcl 25 Mg Tablet) 25 mg PO BEDTIME PRN PRN Reason: Anxiety Insulin Glargine (Insulin Glargine,Hum.Rec.Anlog 100 Unit/Ml 10 Ml Vial) 40 unit SUBCUT BEDTIME [facility] Insulin Human Lispro (Insulin Lispro 100 Unit/Ml 3 Ml Vial) 0 unit SUBCUT QIDACHS [facility]; Protocol Last Admin: 05/24/21 09:23 Dose: Not Given Documented by: Magnesium Hydroxide (Milk Of Magnesia 30 Ml Oral.Susp) 30 ml PO DAILY PRN PRN Reason: Constipation Methimazole (Methimazole 10 Mg Tablet) 10 mg PO DAILY [facility] Last Admin: 05/24/21 09:23 Dose: 10 mg Documented by: Nicotine (Nicotine 21 Mg Patch.Td24) 21 mg TRANSDERMA DAILY [facility] Last Admin: 05/24/21 10:02 Dose: Not Given Documented by: Nicotine Polacrilex (Nicotine Polacrilex 2 Mg Gum) 2 mg BUCCAL Q2H PRN PRN Reason: craving Omeprazole (Omeprazole 20 Mg Capsule.Dr) 20 mg PO BEDTIME [facility] Last Admin: 05/23/21 21:06 Dose: 20 mg Documented by: Quetiapine Fumarate (Quetiapine Fumarate 200 Mg Tablet) 200 mg PO BEDTIME PRN PRN Reason: insomnia Allergies Allergies Allergy/AdvReac Type Severity Reaction Status Date / Time morphine Allergy Itching Verified 05/16/21 21:20 Assessment & Plan Assessment & Plan (1) Hypertension: Status: Acute Code(s): I10 - Essential (primary) hypertension (2) Diabetes: Status: Acute Code(s): E11.9 - Type 2 diabetes mellitus without complications (3) DM type 2 (diabetes mellitus, type 2): Status: Acute Code(s): E11.9 - Type 2 diabetes mellitus without complications (4) HIV (human immunodeficiency virus infection): Status: Acute Code(s): B20 - Human immunodeficiency virus [HIV] disease (5) Major neurocognitive disorder due to another medical condition with behavioral disturbance: Status: Acute Code(s): F02.81 - Dementia in other diseases classified elsewhere with behavioral disturbance Assessment and Plan: 1) samson - VPA 1000 mg at HS, haldol 5 BID. much improved in less than 24H on this regimen. 2) DM - per medicine. SSI in place. 3) HTN - norvasc 5. 4) dispo - pending inpt stabilization. 05/19: Continue current regimen with no changes implemented today 05/20: Continue current plans 05/21: Continue current regimen and plans. Clarified legal status on 05/22 05/22MOCA completed today- pt scored 6/30- severe impairment in executive function, naming (0/3), recall (0/5), attention, language fluency and repetition, less impairment on orientation. We discussed further imaging but does appear that pt may have underlying major neurocognitive disorder. Pt explained reasons for being in hospital for further assessment of cognitive status and ability to care for self. Pt agreed to stay in hospital and showed basic understanding about why she is here. Therefore CV was offered and accepted. I spent minutes with the patient and/or on the patient floor today, greater than?50% of which was spent counseling/coordinating care. Reason for contiued inpatient stay Substantial Risk for: inability to function
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
[2021-05-24] MEDS: Benztropine Mesylate 1 MG TABLET PO (13:24)
--- NOTE | 2021-05-24 16:28 | PC.NURSE ---
Beatrice is alert and oriented to day, date, time and situation despite poor insight about reasons for admission. She denies current ideation, plan or intent to harm self or others. She verbalizes plan to follow up with outpatient appointments and comply with rxd medication regime. She denies perceptual disturbances. She denies physical complaint. Per team patient is discharging in care of son and will have outpatient visiting nurse services for medication management. Discharge paperwork with discharge medications and appointments provided to patient who was unable to verbalize understanding of meds despite teaching.
[2021-05-24 18:10] LABS: Glucose, Whole Blood 139 mg/dL (60-115)
== END 2021-05-24 19:30 | disposition home or self-care (01) | DRG 753 ==
PROVIDERS: Hospitalist; Psychiatry & Neurology Psychiatry; Registered Nurse; Admitting Provider Psychiatry & Neurology Psychiatry; Visit Provider Social Worker
DX: F31.10 Bipolar disorder, current episode manic without psychotic features, unspecified (principal); B20 Human immunodeficiency virus [HIV] disease; N17.9 Acute kidney failure, unspecified; E11.649 Type 2 diabetes mellitus with hypoglycemia without coma; R45.851 Suicidal ideations; R45.850 Homicidal ideations; I10 Essential (primary) hypertension; F02.81 Dementia in other diseases classified elsewhere, unspecified severity, with behavioral disturbance; E11.65 Type 2 diabetes mellitus with hyperglycemia; Z91.14 Patient's other noncompliance with medication regimen; F17.210 Nicotine dependence, cigarettes, uncomplicated; Z71.6 Tobacco abuse counseling; Z88.5 Allergy status to narcotic agent; Z79.4 Long term (current) use of insulin; Z79.82 Long term (current) use of aspirin; Z79.899 Other long term (current) drug therapy
CPT/HCPCS: 36415; 70250; 70450; 71046; 74018; 80048; 80053; 80061; 80076; 80164; 82947; 83036; 85025